=== PATIENT | female | born 1965 | race Caucasian/White ===

== ENCOUNTER 2024-03-22 10:57 | Outpatient (OUT) | payer OTHER, SELFPAY ==
[2024-03-22 11:18] VITALS: BP 132/72; PULSE 77; O2SAT 97; BMI 33.6
--- NOTE | 2024-03-22 11:18 | VEINCLINIC_ITS ---
Vital Signs 03/22/24 11:18 Height 5 ft 1 in Weight 80.739 kg BMI 33.6 BP 132/72 BP Location Left Brachial BP Position Sitting BP Cuff Size Adult Respiration 16 Pulse 77 Pulse Oximetry (%) 97 Oxygen Delivery Method Room Air Comment The patient's blood pressure is elevated. Varicose Veins Patient here for courtesy consult for sclerotherapy. Educated on varicose veins and prevention. Patient denies interest in ultrasound reflux. IWin MD personally performed the services described in this documentation, as scribed by Frances Carpenter RN in my presence and it is both accurate and complete. Frances Villar RN, am scribing for, and in the presence of, Dr. Win Carvajal and in the presence of the patient. 0 History of lower extremity trauma: No Superficial thrombophlebitis: No Family history of varicose veins: yes Has patient had previous lower extremity venous surgery: No Patient has previously received the following treatment(s) for lower extremity varicose veins: Reports none Does patient have a history of : no Does patient intend to have future pregnancies: no Has patient had lower extremity venous scan with relux testing: No Support hose used: Yes Problems walking or doing physical activity: No PFSH PFSH Medical History (Updated 03/22/24 @ 11:34 by Frances Carpenter, RN) Pain due to varicose veins of both lower extremities ?I83.813 - Varicose veins of bilateral lower extremities with pain (ICD-10) Hypertension ?I10 - Essential (primary) hypertension (ICD-10) Surgical History (Updated 03/22/24 @ 11:21 by Frances Carpenter, RN) History of cholecystectomy ?Z90.49 - Acquired absence of other specified parts of digestive tract (ICD- 10) H/O: hysterectomy ?Z90.710 - Acquired absence of both cervix and uterus (ICD-10) Family History (Updated 03/22/24 @ 11:23 by Frances Carpenter, RN) Grandmother Family history of cancer Mother Family history of hypertension Varicose veins of bilateral lower extremities with pain Meds Home Medications and Allergies Home Medications ?Medication ?Instructions ?Recorded ?Confirmed ?Type bupropion HCl 150 mg tablet,12 hr 150 mg PO DAILY 03/22/24 03/22/24 History sustained-release (Wellbutrin SR) carvedilol 6.25 mg tablet 6.25 mg PO BID 03/22/24 03/22/24 History citalopram 20 mg tablet (Celexa) 10 mg PO DAILY 03/22/24 03/22/24 History losartan 100 1 tab PO DAILY 03/22/24 03/22/24 History mg-hydrochlorothiazide 25 mg tablet (Hyzaar) zafirlukast 20 mg tablet (Accolate) 20 mg PO BID 03/22/24 03/22/24 History Allergies Allergy/AdvReac Type Severity Reaction Status Date / Time levofloxacin Allergy Agitated Unverified 03/22/24 11:24 Exam Narrative Exam Narrative: IWin MD personally performed the services described in this documentation, as scribed by Frnaces Carpenter RN in my presence and it is both accurate and complete. I, Frances Carpenter RN, am scribing for, and in the presence of, Dr. Win Carvajal and in the presence of the patient. Constitutional Documenting provider has reviewed patient's vital signs: yes Common normals: oriented x3 Nutritional appearance: overweight Lymph Lymphatic: no lymphedema noted Cardio Peripheral pulses: posterior tibial pulses present and dorsalis pedis pulses present Extremity Right lower extremity: lower leg Right lower leg: inspection and palpation Left lower extremity: lower leg Left lower leg: inspection and palpation Neuro Common normals: oriented x3 Assessment and Plan Assessment and Plan (1) Pain due to varicose veins of both lower extremities: Plan Explained vein anatomy and physiology to patient.? Explained the development of varicose veins to patient.? Explained varicose vein treatments to patient, including laser ablation, microfoam chemical ablation (Varithena), injection sclerotherapy.? Explained potential risks and benefits of varicose vein [place] atments. Patient verbalizes understanding and wants to pursue varicose vein treatment sclerotherapy only. Scheduled to return on? 04/05/24 for self pay sclerotherapy.
--- NOTE | 2024-03-22 11:36 | P.DS_ITS ---
Discharge Plan Discharge Disposition: Home, Self-Care Follow Up Appointments: 04/05/24 Plan of Treatment: self pay sclerotherapy Print Language: Kazakh Discharge Date/Time: 03/22/24 11:36
== END 2024-03-22 11:36 | disposition home or self-care (01) ==
PROVIDERS: PCP Radiology Diagnostic Radiology; Visit Provider Radiology Diagnostic Radiology
DX: I83.813 Varicose veins of bilateral lower extremities with pain (principal)